=== PATIENT | female | born 1940 | race Caucasian/White ===

== ENCOUNTER → 2019-01-17 12:59 | Outpatient (CLI) | payer MEDICARE, BC, SELFPAY ==
--- NOTE | 2019-01-17 | DI.MRI.S_ITS ---
PROCEDURE: MR KNEE LT WO CON INDICATIONS: osteoarthritis TECHNIQUE: Noncontrast sagittal PD fast spin echo and T2 fast spin echo with fat saturation, sagittal 3-D FLASH with fat saturation; coronal T1 spin echo and PD fast spin echo with fat saturation, and axial PD fast spin echo with fat saturation through the knee. COMPARISON: None. FINDINGS: Image quality: There is motion artifact limiting evaluation. Menisci: There is moderate to severe degenerative tearing of the medial meniscus with slight peripheral extrusion. The meniscal root ligament appears grossly intact. The lateral meniscus demonstrates mild degenerative signal along the free edge of the body but otherwise appears intact. Cruciate ligaments: There is thickening of the anterior cruciate ligament with intrasubstance T2 hyperintensity compatible with chronic myxoid degeneration versus sequelae of a moderate sprain. The posterior cruciate ligament appears intact. Medial structures: The medial collateral ligament appears intact. The semimembranosus tendon insertions and meniscocapsular junction appear intact. Visualized portions of the pes anserinus tendons appear intact without associated bursal fluid collections. Lateral structures: The lateral collateral ligament, long and short heads of the biceps femoris tendon appear intact. The popliteus tendon appears intact. Iliotibial band appears normal. Anterior structures: The quadriceps and patellar tendons appear intact. There is slight lateral tilt of the patella. No femoral trochlear dysplasia or ventral trochlear prominence. No edema in the infrapatellar fat pad. Bones and cartilage: No bone marrow contusions or fractures. There is tricompartmental osteophytosis. There is moderate to severe cartilage thinning in the medial compartment with areas of preserved full-thickness cartilage loss and associated subchondral edema along the medial femoral condyle and medial tibial plateau peripherally. In the lateral compartment, there is mild to moderate cartilage thinning with chondral fraying. In the patellofemoral compartment, and there is mild to moderate cartilage thinning most prominent laterally with superficial chondral fraying. Joint space: There is a small joint effusion. No Vivas's cyst. Normal appearing synovial plicae are incidentally noted. IMPRESSION: 1. Tricompartmental osteoarthritic changes most severe within the medial compartment. 2. Moderate to severe degenerative tearing of the medial meniscus. 3. Small joint effusion. 4. 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 Dictated by: Jose Alberto Curran M.D. on 01/17/2019 at 17:10 Approved by: Jose Alberto Curran M.D. on 01/17/2019 at 17:24
== END ==
PROVIDERS: PCP Family Medicine; Visit Provider Orthopaedic Surgery
DX: M19.90 Unspecified osteoarthritis, unspecified site (principal)
CPT/HCPCS: 73721

== ENCOUNTER → 2019-02-06 16:39 | Outpatient (CLI) | payer MEDICARE, BC, SELFPAY ==
[2019-02-06 17:12] LABS: Add Manual Diff / Slide Review NO; Basophils Absolute Auto 0 /uL (0-100); Basophils Percent Auto 0.6 % (0-2); Eosinophils Absolute Auto 200 /uL (0-450); Eosinophils Percent Auto 2.4 % (2-4); Hematocrit 40.3 % (36-46); Hemoglobin 13.2 g/dL (12.0-16.0); Lymphocytes Absolute Auto 1900 /uL (1100-4500); Lymphocytes Percent Auto 28.3 % (25-40); Mean Corpuscular HGB Conc 32.8 % (30-36); Mean Corpuscular Hemoglobin 32.8 PG (26-34); Mean Corpuscular Volume 99.8 fL (80-100); Monocytes Absolute Auto 400 /uL (0-900); Monocytes Percent Auto 6.4 % (3-14); Neutrophils Absolute Auto 4100 /uL (1500-7000); Neutrophils Percent Auto 62.3 % (50-75); Platelet Count 212 X10^3/uL (150-400); Red Blood Cell Count 4.04 X10^6/uL (4.0-5.2); Red Cell Distribution Width 13.6 % (11.6-14.8); White Blood Cell Count 6.6 X10^3/uL (4.5-11.0)
[2019-02-06 17:20] LABS: Hemoglobin A1C% w Est Avg Glu 5.1 % (4.0-6.0)
[2019-02-06 17:33] LABS: Blood Urea Nitrogen 26 mg/dL (7-17); Calcium 10.1 mg/dL (8.4-10.2); Carbon Dioxide 26 mmol/L (22-32); Chloride 104 mmol/L (98-107); Estimated Glomerular Filt Rate 53.9 mL/min (>60); Glucose 94 mg/dL (80-110); HEMOLYSIS < 15 (0-50); Sodium 142 mmol/L (137-145)
[2019-02-06 17:35] LABS: Potassium 5.4 mmol/L (3.4-5.1)
[2019-02-06 18:04] LABS: Appearance Urine UA SL CLOUDY; Bilirubin Urine UA NEGATIVE (NEGATIVE); Color Urine UA YELLOW; Glucose Urine UA NEGATIVE (Negative); Ketones Urine UA NEGATIVE (NEGATIVE); Leukocyte Esterase Urine UA 2+ (NEGATIVE); Nitrite Urine UA POSITIVE (Negative); Occult Blood Urine UA TRACE-LYSED (Negative); Protein Urine UA NEGATIVE (Negative); Urobilinogen Urine UA 0.2 E.U./dL (0.2)
[2019-02-06 18:17] LABS: Amorphous Sediment Urine 1+; Bacteria Urine Many (>30); Culture Indicated Urine Specimen Cultured; Mucus Urine 1+ (Negative); RBC Urine 0-1/HPF (0-5/HPF); Squamous Epithelial Cell Urine 1-5 /HPF (0-5/HPF); WBC Urine 30-100/HPF (0-5/HPF)
== END ==
PROVIDERS: PCP Family Medicine; Visit Provider Orthopaedic Surgery
DX: Z01.818 Encounter for other preprocedural examination (principal); Z01.812 Encounter for preprocedural laboratory examination; N39.9 Disorder of urinary system, unspecified; Z13.1 Encounter for screening for diabetes mellitus; R73.9 Hyperglycemia, unspecified
CPT/HCPCS: 36415; 80048; 81001; 83036; 85025; 87077; 87086; 87186; 93005; 93010

== ENCOUNTER 2019-04-05 09:01 | Observation (INO) | payer MEDICARE, BC, SELFPAY ==
[2019-03-21 08:38] VITALS: BMI 30.2
[2019-04-04] VITALS (16 sets, daily range): BP systolic 96–164; BP diastolic 45–74; PULSE 45–69; RESP 12–20; TEMP 36.2–36.8; O2SAT 93–97; BMI 30.2
--- NOTE | 2019-04-04 06:00 | DI.RAD.S_ITS ---
PROCEDURE: XR KNEE LT 1TO2V INDICATIONS: TKA TECHNIQUE: 2 views of the knee were acquired. COMPARISON: None. FINDINGS: Bones: No fractures or dislocations. No suspicious bony lesions. Soft tissues: No joint effusion. No suspicious soft tissue calcifications. IMPRESSION: Expected postoperative appearance Dictated by: Edouard Mendoza M.D. on 04/04/2019 at 11:27 Approved by: Edouard Mendoza M.D. on 04/04/2019 at 11:28
[2019-04-04] MEDS: VANCOMYCIN 1,000 MG/200 ML PIGGYBACK 200 MG IV (07:00)
[2019-04-04] MEDS: MELOXICAM 7.5 MG TABLET 15 MG PO (07:10)
[2019-04-04] MEDS: PREGABALIN 75 MG CAPSULE PO (07:10)
[2019-04-04] MEDS: ACETAMINOPHEN 325 MG TABLET 975 MG PO ×3 (07:10→20:44)
[2019-04-04] MEDS: LACTATED RINGERS 1,000 ML 42 ML IV ×2 (07:21→09:46)
--- NOTE | 2019-04-04 07:41 | PM.PREOP ---
Pre-operative Note Interval Note History & Physical reviewed/Exam performed by Physician: Yes Changes to H&P: No
--- NOTE | 2019-04-04 07:41 | PM.OP.1 ---
Operative Date/Time/Diagnoses Date of procedure: 04/04/19 Time of procedure: 07:59 Pre-op diagnosis: Left knee osteoarthritis Post-op diagnosis: same Procedure & Clinicians Procedure: Left total knee arthroplasty Same procedure as scheduled: Yes Indications: The patient has had progressively worsening left knee pain with radiographic changes consistent with arthritis. Non-operative management has failed and the patient has requested total knee replacement. The risks, benefits and alternatives to surgery were discussed with the patient prior to proceeding. Risks discussed included, but were not limited to, failure to relieve pain, stiffness, infection, nerve damage, deep venous thrombosis, pulmonary embolism, stroke, coma, heart attack, permanent paralysis and , as well as the potential need for eventual revision of the prosthetic. Surgeon: Caroline Gardner Fios Line Installer: Michelle Varner Anesthesia Type: General and Spinal Operative Notes Findings: Severe left knee osteoarthritis, good stability Closure Type: primary Specimen(s): none sent Prosthetic devices, grafts, tissues, transplants, or devices: Gardner [employer] Nephew Luizney BCS 2 size 4 femur, size 4 tibia, +9 poly, 35 x 7.5 mm patella Applied: drain(s) Estimated Blood Loss (mL): 250 Blood products transfused: none Tourniquet time (min): 63 Procedure in detail: The patient was seen in the pre-operative area, where the patient identified the left knee as the operative site and this was marked with my initials. The patient received pre-operative antibiotics, and was taken to the operating room and placed on the operative table in the supine position. After satisfactory anesthesia, a multimedia production assistant out was performed. The left leg was encircled with a tourniquet about the proximal thigh, and the leg was prepared from the toes to the tourniquet with ChloroPrep in the usual fashion and draped through sterile drapes. The leg was elevated and exsanguinated with Eschmark bandage and the tourniquet inflated to [250] mmHg pressure. The knee was approached through an approximately 18 cm incision centered over the patella and carried into the knee through a medial parapatellar arthrotomy. A portion of the medial and lateral meniscus was resected. Soft tissue was carefully mobilized around the patella the patella was measured with a caliper. Bone was resected from the patella and the patellar height was reconstituted with up an appropriate sized patellar component. A cover was then placed on the patella. A small amount of additional medial and lateral meniscus was resected. The visionare guide fit well to the distal femur. It looked like an appropriate distal femoral cut and the cut was made without difficulty. The rotation was assessed and the appropriate size femoral guide was placed on the distal femur and finishing cuts were made. There was no evidence of notching. The anterior, posterior and chamfer cuts were then made. The posterior osteophytes and soft tissues were then removed. The posterior capsule was injected with part of a mixture of 60 ml 0.25% Marcaine mixed with 20 ml Exparel for post operative pain control. The remainder of this mixture was injected into the capsule and subcutaneous tissues during cement curing. The tibia was prepared and the visionaire guide fit well to the distal tibia. The rotation was assessed. The patient was placed in extension residual medial and lateral meniscus as well as any residual bone was carefully resected. [No] additional tibia was resected. Hemostasis was achieved especially posteriorly. Additional local was injected into the posterior capsule. The extension gap was assessed and additional releases for gap balancing were performed as necessary. It was checked with the gap flatwork folder. The femoral component was trial was placed and the notch was finished. Trial tibial and femoral components were then placed and the knee placed through a range of motion. Range of motion was [0-130], with good stability throughout the range. The trials were then removed, and the tibia was finished. The bone was prepared with pulsatile lavage, and dried with a sponge. Cement was applied and the final prosthetics placed. Excess cement was removed during and after cement curing. A brief Betadine soak was performed. After confirming there was no extruded cement posteriorly, the final tibial insert was placed. The knee was copiously irrigated and the tourniquet deflated. Hemostasis was obtained with the Bovie. A drain was placed and brought out superolaterally. The capsule was closed with interrupted Vicryl suture. The subcutaneous layer was closed with barbed sutures, and the skin with a running 3-0 V-Lock suture and Surgical glue. An Aquacel Ag dressing was applied and the patient was taken to recovery having tolerated the procedure well. Complications: none Post-operative Condition: stable Disposition: Acute Care Plan for aftercare: The patient will be maintained on a standard total knee replacement protocol with weight bearing as tolerated. The patient will receive aspirin and sequential compression devices for DVT prophylaxis. The patient will be discharged home when safe for the home environment.
[2019-04-04] MEDS: CEFAZOLIN 2 GM/100 ML FROZ.PIGGY IV ×2 (07:55→15:59)
--- NOTE | 2019-04-04 08:26 | SUR.OPER ---
Supine on padded OR bed. Pillow under head, arms secured on padded armboards <90 degree abduction. Safety belt across torso. Non-operative leg secured with tape over blanket over lower leg. Operative leg secured in DeMayo/Heriberto positioner. Foam padded brace at thigh of operative leg.
[2019-04-04] MEDS: BUPIVACAINE 0.25% W/ EPI 30 ML VIAL 60 ML INJ (08:36)
[2019-04-04] MEDS: BUPIVACAINE LIPOSOME 266 MG/20 ML VIAL INJ (08:37)
[2019-04-04] MEDS: TRANEXAMIC ACID 1,000 MG VIAL 2000 MG INJ ×2 (08:37→09:20)
--- NOTE | 2019-04-04 10:09 | SUR.PHASEI ---
EKG completed to Dr. East for review. No additional orders at this time.
--- NOTE | 2019-04-04 14:50 | PT.IIE ---
Addendum entered and electronically signed by Leslie Dwyer, PT 04/04/19 14:50: BP sitting EOB was 122/52 with pt reporting mild symptoms of lightheadedness. Symptoms resolved within a minute and pt had no further complaints with mobility. Original Note: Current Diagnoses Unilateral primary osteoarthritis, left knee (04/04/19) Surgery Performed Operation Date: 04/04/19 07:45 Actual Procedures p Total Knee Arthroplasty(Left) - Caroline Gardner MD Surgical History (Last Updated 03/21/19 @ 09:18 by Jenny Gutiérrez RN) H/O: hysterectomy (Acute) History of bladder surgery (Acute) Hx of appendectomy (Acute) Hx of hand surgery (Acute) Hx of sinus surgery (Acute) Medical History (Last Updated 03/21/19 @ 09:18 by Jenny Gutiérrez RN) Depression (Acute) GERD (gastroesophageal reflux disease) (Acute) Gout (Acute) Hearing impaired (Acute) Osteoarthritis (Acute) Thinning of skin (Acute) Physical Therapy Inpatient Evaluation/Re-Eval M1 PT/OT-IP Prior Functional Status Start: 04/04/19 12:08 Freq: NEEDED Status: Active Protocol: Document 04/04/19 14:27 AW (Rec: 04/04/19 14:49 AW [id number]) Medical Review Prior Functional Status Medical History Reviewed Yes Diet/Fluid Consistency Regular Communication Pt able to make needs known Mobility and Gait Independent with all functional mobility, no use of assistive device Activities of Daily Living and IADL's Independent Social History Household Members none Living Arrangements House Number of Floors (Floors) One Floor Number of Stairs To Enter/Railing? 0 TREVOR Home Environment High Toilet,Walk in Shower,Tub /Shower Home Equipment Shower Seat without Backrest, Hand Held Shower,Grab Bars Near Toilet,Grab Bars In Shower Employment Status Retired Additional Social History Comment Pt lives alone. Her friend, Greer, is planning to stay with her at discharge as long as needed. M2 PT-IP Current Condition Start: 04/04/19 12:08 Freq: NEEDED Status: Active Protocol: Document 04/04/19 14:27 AW (Rec: 04/04/19 14:49 AW [id number]) Physical Therapy Current Condition Current Condition Evaluation Date 04/04/19 Treatment Diagnosis s/p L TKA, impaired mobility Weight Bearing Status Weight Bearing Status Weight Bear as Tolerated M3 PT-IP Subjective Start: 04/04/19 12:08 Freq: NEEDED Status: Active Protocol: Document 04/04/19 14:27 AW (Rec: 04/04/19 14:49 AW [id number]) Subjective Physical Therapy Visit Type Type Initial Evaluation Visit Start Time 12:23 Visit Stop Time 14:25 Total Visit Minutes 43 Notes Pt visiting with friend, Greer , who stayed in room during evaluation. Number of MACHINE SHOP INSPECTOR Visits 0 Physical Therapy Visit Comments Patient Comments Pt willing to work with therapy. Patient Goals Pt hopes to return home at discharge with her friend assisting Therapy Pain Assessment Pain When Pain Assessed During Mobility Pain Present Pain Present Denied Pain M4 PT-IP Mobility and Gait Start: 04/04/19 12:08 Freq: NEEDED Status: Active Protocol: Document 04/04/19 14:27 AW (Rec: 04/04/19 14:49 AW [id number]) PT-Bed Mobility Assessment Supine to Sit Supine to Sit Contact Guard Assistance,1 Person Assistance Sit to Supine Sit to Supine Contact Guard Assistance Scooting Scooting to Edge of Bed Contact Guard Assistance Scooting Up and Down in Bed Standby Assistance PT-Transfer Assessment Sit to and From Stand Sit to and from Stand Contact Guard Assistance,1 Person Assistance,Use of Upper Extremities Equipment Transfer Assistive Device Gait Belt,Front Wheeled Walker Orthotic/Prosthetic Devices or Brace: No Transfers Transfer Destination Bed,Toilet Transfer Technique pt ambulated with FWW Transfer Ability Level of Assist Contact Guard Assistance Comments Mobility Comments Pt completed supine to sit and sit to stand using FWW CGA. Pt was slightly impulsive, attempting to stand without assist. She required cues for hand placement and for managing the operative leg. Gait Assessment Gait Gait Assistance Required: Contact Guard Assist Distance (Feet) 15 Able to Maintain Weight Bearing Status Yes During Gait Assistive Devices Assistive Device Gait Belt,Front Wheeled Walker Orthotic/Prosthetic Devices or Brace: No Gait Deviations General Gait Pattern Antalgic,Decreased Stride Length,Decreased Feet Clearance,Flexed Trunk,Step-to Gait Factors Limiting Gait Function Factors Limiting Gait Function Decreased Sensation,Decreased Strength,Poor Balance,Poor Safety Awareness Comments Gait Comments Pt ambulated 15 feet to the toilet using FWW CGA. She required cues to keep her hips square to the walker during turns and for optimal distance to the walker. Stair Climbing Assessment Comments Stair Climbing Comments Not assessed. Pt does not need to manage stairs at home. PT-Balance Assessment Sitting Balance and Reactions Static Sitting Balance Ability Normal Dynamic Sitting Balance Ability Normal Standing Balance and Reactions Static Standing Balance Ability Good Dynamic Standing Balance Ability Good Device Used FWW M5 PT-IP Objective Assessments Start: 04/04/19 12:08 Freq: NEEDED Status: Active Protocol: Document 04/04/19 14:27 AW (Rec: 04/04/19 14:49 AW [id number]) Orientation Orientation/Cognition Level of Alertness Alert Orientation Name,Date,Place,Situation Language Function Ability No Deficits Noted Safety Awareness Decreased Safety Awareness Memory Description No Deficits Noted Gross Range of Motion Upper Extremity ROM Assessment Within Functional Limits Lower Extremity ROM Assessment Left Impaired Strength Upper Extremity Strength Assessment Within Functional Limits Lower Extremity Strength Assessment Left Impaired Comments Strength Comments RLE grossly 4+/5 Coordination Assessment Gross Coordination Gross Coordination WNL Sensation Assessment Sensation Gross Sensation Left LE Impaired Light Touch Impaired Sensation Description Numbness Comments Sensation Comments Pt reports dull light touch sensation at anterior thigh and at knee, but is able to perform quad sets with good control. M6 PT-IP Treatment Start: 04/04/19 12:08 Freq: NEEDED Status: Active Protocol: Document 04/04/19 14:27 AW (Rec: 04/04/19 14:49 AW [id number]) Physical Therapy Treatment Exercises Exercises Ankle Pumps,Quad Sets,Heel Slides,Passive Knee Extension Hang Education Education Provided Precautions,Weight Bearing Status,Post-Op Packet,Safety Other Treatments Other Treatment Performed Reviewed PT plan of care, post -op exercises, weightbearing status, and safe use of FWW. M7 PT-IP Assessment and Plan Start: 04/04/19 12:08 Freq: NEEDED Status: Active Protocol: Document 04/04/19 14:27 AW (Rec: 04/04/19 14:49 AW [id number]) PT Summary Assessment and Plan Potential Rehabilitation Potential Excellent Status of Condition at Evaluation Evolving Summary Impairments ROM,Strength,Balance,Sensation ,Bed Mobility,Transfers,Gait, Activity Tolerance Assessment Summary Pt is a 78 yo woman seen for PT evaluation on POD0 following L TKA. PLOF: Pt lives alone and was independent with all functional mobility and ADL's/ IADL's. CLOF: Pt requiring CGA and cues for safety with FWW for all mobility. She has a friend who is able to stay with her and provide assistance at discharge. At this time, PT recommends discharge to home with assistance and outpatient PT. Will continue to assess as anesthetic agents wear off. Goals Bed Mobility Goal Standby Assistance Transfer Goal Standby Assistance,Front Wheeled Walker Gait Goal Standby Assistance,Front Wheel Walker Gait Distance 100 Days to Meet Goals 2 Frequency of Treatment Frequency Of Treatment Twice a Day Treatment Plan Physical Therapy Treatment Plan Bed Mobility Training,Transfer Training,Gait Training, Therapeutic Exercise,Balance Retraining,Post Op Education, Discharge Planning,Hot or Cold Pack,Neuromuscular Re-ed, Coordination Retraining,Manual Therapy Other Recommendations and Next Treatment progress gait distance, review Focus post-op exercises and dosing, review safe use of FWW. Recommendations To Nursing Amount of Assist Needed Standby Assistance,1 Person Assist Discharge Recommendations PT Discharge Recommendations Home with Assistance, Outpatient PT
--- NOTE | 2019-04-04 14:51 | PC.NURSE ---
Pt admitted to floor at 1045. She had a l.knee replacement. Pt has an aquacel dressing to l.knee with karin wrap. CMS wnl and pt has feeling to foot and is ankle waving. She did have a spinal in surgery and denies any pain at this time. Tylenol given and pt is sitting up in chair, she has a hemovac that is putting out bloody drainage. Resting comfortably and LR at 125cc/hr infusing.
[2019-04-04] MEDS: LACTATED RINGERS 1,000 ML 125 ML IV ×2 (14:57→22:30)
[2019-04-04] MEDS: DOCUSATE 100 MG CAPSULE PO (20:44)
[2019-04-04] MEDS: ASPIRIN EC 81 MG TABLET PO (20:44)
[2019-04-05] MEDS: CEFAZOLIN 2 GM/100 ML FROZ.PIGGY IV (00:18)
[2019-04-05] MEDS: TRAMADOL 50 MG TABLET PO ×2 (02:50→09:20)
[2019-04-05 05:10] VITALS: BP 134/51; PULSE 51; RESP 14; TEMP 37.1; O2SAT 98
[2019-04-05 05:58] LABS: Hematocrit 34.4 % (36-46); Hemoglobin 11.5 g/dL (12.0-16.0)
[2019-04-05 09:00] VITALS: BP 101/59; PULSE 62; RESP 18; TEMP 36.3; O2SAT 98
--- NOTE | 2019-04-05 09:11 | CM.IDA ---
Discharge Planning/Care Management CM Discharge Assessment Start: 04/05/19 09:04 Freq: Status: Active Protocol: Document 04/05/19 09:04 MICK (Rec: 04/05/19 09:11 MICK [id number]) Discharge Planning Assessment Assigned Rn [employer] PATRICIA Gresham DPOA/Assigned Designee Name Greer (cousin) Contact Information [phone] Advance Directives? Yes History Provided By Patient,Medical Record Prior Living Arrangements House Household Members none Independent with ADL's Yes Is patient alert and oriented? Yes Barriers to Discharge No Comment Pt has planned to DC home w/ friend to help and therapy has already cleared pt for this plan. DC order and process has begun this morning. No barriers expected to Dc home today w/friend to assist and outpt therapies. Discharge Plan Home Transportation Arrangement Friend Referrals Initiated None needed Review Status In Process
[2019-04-05] MEDS: DOCUSATE 100 MG CAPSULE PO (09:20)
[2019-04-05] MEDS: ASPIRIN EC 81 MG TABLET PO (09:20)
[2019-04-05] MEDS: ACETAMINOPHEN 325 MG TABLET 975 MG PO (09:21)
--- NOTE | 2019-04-05 10:30 | PT.IPTN ---
Current Diagnoses Unilateral primary osteoarthritis, left knee (04/04/19) Surgery Performed Operation Date: 04/04/19 07:45 Actual Procedures p Total Knee Arthroplasty(Left) - Caroline Gardner MD Physical Therapy Treatment Note M2 PT-IP Current Condition Start: 04/04/19 12:08 Freq: NEEDED Status: Active Protocol: Document 04/04/19 14:27 AW (Rec: 04/04/19 14:49 AW [id number]) Physical Therapy Current Condition Current Condition Evaluation Date 04/04/19 Treatment Diagnosis s/p L TKA, impaired mobility Weight Bearing Status Weight Bearing Status Weight Bear as Tolerated M3 PT-IP Subjective Start: 04/04/19 12:08 Freq: NEEDED Status: Active Protocol: Document 04/05/19 10:30 GGD (Rec: 04/05/19 11:48 GGD [id number]) Subjective Physical Therapy Visit Type Type Treatment Note Visit Start Time 10:00 Visit Stop Time 10:30 Total Visit Minutes 30 Physical Therapy Visit Comments Patient Comments Pt willing to work with therapy. Therapy Pain Assessment Pain When Pain Assessed During Mobility Pain Present Pain Present Denied Pain M4 PT-IP Mobility and Gait Start: 04/04/19 12:08 Freq: NEEDED Status: Active Protocol: Document 04/05/19 10:30 GGD (Rec: 04/05/19 11:48 GGD [id number]) PT-Bed Mobility Assessment Sit to Supine Sit to Supine Contact Guard Assistance Scooting Scooting to Edge of Bed Contact Guard Assistance Scooting Up and Down in Bed Standby Assistance PT-Transfer Assessment Sit to and From Stand Sit to and from Stand Standby Assistance,1 Person Assistance,Use of Upper Extremities Equipment Transfer Assistive Device Gait Belt,Front Wheeled Walker Orthotic/Prosthetic Devices or Brace: No Transfers Transfer Destination Bed Gait Assessment Gait Gait Assistance Required: Contact Guard Assist Distance (Feet) 160 Able to Maintain Weight Bearing Status Yes During Gait Assistive Devices Assistive Device Gait Belt,Front Wheeled Walker Orthotic/Prosthetic Devices or Brace: No Gait Deviations General Gait Pattern Antalgic,Decreased Stride Length,Decreased Feet Clearance,Flexed Trunk,Step-to Gait Factors Limiting Gait Function Factors Limiting Gait Function Decreased Sensation,Decreased Strength,Poor Balance,Poor Safety Awareness Comments Gait Comments Pt needed cues to keep FWW when transfering. M5 PT-IP Objective Assessments Start: 04/04/19 12:08 Freq: NEEDED Status: Active Protocol: Document 04/04/19 14:27 AW (Rec: 04/04/19 14:49 AW [id number]) Orientation Orientation/Cognition Level of Alertness Alert Orientation Name,Date,Place,Situation Language Function Ability No Deficits Noted Safety Awareness Decreased Safety Awareness Memory Description No Deficits Noted Gross Range of Motion Upper Extremity ROM Assessment Within Functional Limits Lower Extremity ROM Assessment Left Impaired Strength Upper Extremity Strength Assessment Within Functional Limits Lower Extremity Strength Assessment Left Impaired Comments Strength Comments RLE grossly 4+/5 Coordination Assessment Gross Coordination Gross Coordination WNL Sensation Assessment Sensation Gross Sensation Left LE Impaired Light Touch Impaired Sensation Description Numbness Comments Sensation Comments Pt reports dull light touch sensation at anterior thigh and at knee, but is able to perform quad sets with good control. M6 PT-IP Treatment Start: 04/04/19 12:08 Freq: NEEDED Status: Active Protocol: Document 04/05/19 10:30 GGD (Rec: 04/05/19 11:48 GGD [id number]) Physical Therapy Treatment Exercises Exercises Ankle Pumps,Quad Sets,Heel Slides,Straight Leg Raises, Passive Knee Extension Hang Education Education Provided Safety M7 PT-IP Assessment and Plan Start: 04/04/19 12:08 Freq: NEEDED Status: Active Protocol: Document 04/05/19 10:30 GGD (Rec: 04/05/19 11:48 GGD [id number]) PT Summary Assessment and Plan Summary Assessment Summary Pt improving with mobility. She was able to progress gait distance. She did needs cues for safety with FWW. Pt was SBA for bed mobility. Pt safe for home D/C when medically stable. Frequency of Treatment Frequency Of Treatment Twice a Day Treatment Plan Physical Therapy Treatment Plan Bed Mobility Training,Transfer Training,Gait Training, Therapeutic Exercise,Balance Retraining,Post Op Education, Discharge Planning,Hot or Cold Pack,Neuromuscular Re-ed, Coordination Retraining,Manual Therapy Recommendations To Nursing Amount of Assist Needed Standby Assistance Discharge Recommendations PT Discharge Recommendations Home with Assistance, Outpatient PT
--- NOTE | 2019-04-05 11:01 | PM.DS.1 ---
History of Present Illness History of Present Illness Date Patient Seen: 04/05/19 Time Patient Seen: 11:01 Chief complaint: [id number] Left TKA Narrative: The patient has had progressively worsening left knee pain with radiographic changes consistent with arthritis. Non-operative management has failed and the patient has requested total knee replacement. The risks, benefits and alternatives to surgery were discussed with the patient prior to proceeding. Risks discussed included, but were not limited to, failure to relieve pain, stiffness, infection, nerve damage, deep venous thrombosis, pulmonary embolism, stroke, coma, heart attack, permanent paralysis and , as well as the potential need for eventual revision of the prosthetic. Discharge Providers Provider Date of admission: 04/04/19 06:12 Discharge Date: 04/05/19 Primary care physician: Calvin Livingston MD Consults: 04/04/19 06:00 Consult to Anesthesiology Routine Comment: Consulting Provider: Anesthesiologist Reason for consultation: Regional block for post operative pain control 04/04/19 12:01 Consult to Discharge Planning Routine Comment: Consult to Physical Therapy Evaluate & Treat Comment: Physician Instructions: postop TKA protocol Consult to Respiratory Therapy Evaluate & Treat Comment: Physician Instructions: Evaluate and treat Discharge provider: Mili Good PA-C Summary Hospital Course Discharge Diagnosis: s/p left TKA Hospital Course: Tabatha was admitted for left total knee arthroplasty with Dr. Gardner. Hospital course unremarkable. Patient was mobilizing well with physical therapy. Her pain was well controlled. ASA for DVT prophylaxis. Drains were removed prior to discharge. Status at Discharge Functional status at discharge: uses cane/walker Exam Vital Signs (past 8 hours): - 04/05/19 05:10 04/05/19 09:00 Temperature 98.7 F 97.4 F L Pulse Rate 51 L 62 Respiratory Rate 14 18 Blood Pressure 134/51 L 101/59 L Pulse Oximetry 98 98 Oxygen Delivery Method Room Air Oxygen Flow Rate 0 Narrative Exam Narrative: Patient is sitting at bedside chair in no acute distress. She is alert and oriented x3. Calves are soft, compressible, and nontender bilaterally. Pulses are symmetrical. She has worked with physical therapy today. She is doing very well with pain control and mobilizing. Dressing on left knee is CDI. Objective Labs Result Diagrams: 04/05/19 05:28 Labs: Laboratory Results - last 24 hr 04/05/19 05:28 Hgb 11.5 L Hct 34.4 L Discharge Plan Discharge Plan Patient Disposition: Home Discharge Med Rec/Prescriptions Prescriptions: New aspirin 81 mg Tablet,Delayed Release (Dr/Ec) 81 mg PO BID Qty: 30 RF: 0 docusate sodium [DOK] 100 mg Capsule 100 mg PO BID Qty: 30 RF: 0 Continued acetaminophen [Tylenol Arthritis Pain] 650 mg Tablet Extended Release 650 mg PO Q12H PRN (Reason: Pain) RF: 0 Follow up/Referrals: Calvin Livingston MD [Primary Care Provider] - Caroline Gardner MD [Physician] - Provider Discharge Instructions Cold/Heat Therapy: as needed Skin/Wound/Dressing Care Report to your healthcare provider any signs of infection, such as:: chills, fever and increased pain Dressing: leave in place until appointment Visit Report/Discharge Packet Instructions: DI for Knee Replacement Discharge Data Primary Care Provider: Calvin Livingston Quality VTE Deep Vein Thrombosis/Pulmonary Embolism Present on Admission: No
--- NOTE | 2019-04-05 11:34 | PC.NURSE ---
Pt given oxycodone this am for discomfort and helpful.. L.knee dressing is cdi. Hemovac putting out minimal drainage. Working well with physical therapy. CMS [id number]. Pt is most likely going to be discharged today.
--- NOTE | 2019-04-05 15:23 | PC.NURSE ---
Pt is A and O x 4, VSS. She has been given her discharge instructions and has all of her belongings. She has a ride arranged with her caregiver Greer. She has reviewed her medication list and states she understands what medications she needs to take and why. She left the unit at approx 1530 in a wheelchair.
== END 2019-04-05 15:29 | disposition home or self-care (01) ==
LOC: AC 14:37 → OR 16:01 → AC 16:04
PROVIDERS: Admitting Provider Orthopaedic Surgery; PCP Family Medicine; Visit Provider Orthopaedic Surgery
PROC: 0SRD0JZ Replacement of Left Knee Joint with Synthetic Substitute, Open Approach (ICD-10-PCS; CPT 27447; principal; 2019-04-04 07:45)
DX: M17.12 Unilateral primary osteoarthritis, left knee (principal)
CPT/HCPCS: 27447; 36415; 73560; 85014; 85018; 94762; 97110; 97116; 97161; C1776; G0378; C9290; J0690; J1100; J2250; J2274; J2405; J2704; J3010